=== PATIENT | male | born 1955 | race Caucasian/White ===

== ENCOUNTER 2016-04-29 17:27 | Inpatient (IN) ==
[2016-04-29] MEDS ORDERED: methylPREDNISolone SOD SUC 125 MG/2 ML VIAL IV STA (17:51)
[2016-04-29] MEDS ORDERED: ALUM/MAG/SIMETH/LIDO VISC 1:1 30 ML BOTTLE PO STA (17:51)
[2016-04-29] MEDS ORDERED: ONDANSETRON 4 MG/2 ML VIAL IV STA (17:51)
[2016-04-29] MEDS ORDERED: MORPHINE 2 MG/1 ML SYRINGE IV STA (17:51)
[2016-04-29] MEDS ORDERED: FUROSEMIDE 40 MG/4 ML VIAL IV STA (17:51)
[2016-04-29] MEDS ORDERED: ASPIRIN 325 MG TABLET PO STA (17:51)
[2016-04-29] MEDS ORDERED: NITROGLYCERIN 2% OINT 1 INCH/GM PACK TOP STA (17:51)
[2016-04-29] MEDS ORDERED: ALBUTEROL/IPRATROPIUM 3 ML NEB RESP TX STA (17:51)
--- NOTE | 2016-04-29 17:55 | Emergency Department Note ---
Chang Ruiz Meredith, am scribing for, and in the presence of, Kaleb Garcia MD 17:52. Jose Ruiz Charles R, MD, personally performed the services described in this documentation, ascribed by Nannette Downing in my presence, and it is both accurate and complete [id number] . Arrival - Arrival Chief Complaint: Chest Pain Stated Complaint: CP ED Nursing Triage Note: c/o chest pain with exertion +SOB. no hx of heart problems Mode of Arrival: Wheelchair Limitations: No Limitations Source: Patient, Family, Old Records Reviewed, RN Notes Reviewed Time Seen by Provider: 04/29/16 17:46 - History of Present Illness HPI Narrative: Pt is a 60 y/o white male reporting to the ED with c/o chest pain on exertion and shortness of breath which onset today. He has a history of kidney stones. Onset (ago): hour(s) Allergies/Adverse Reactions: Allergies Allergy/AdvReac Type Severity Reaction Status Date / Time Penicillins Allergy HIVES Verified 04/29/16 17:34 cholesterol med AdvReac Weakness Uncoded 04/29/16 17:34 Home Medications: Home Medications Medication Instructions Recorded Confirmed Type Amitriptyline [Elavil] 100 mg PO BEDTIME 04/29/16 04/29/16 History Gabapentin 800 mg PO TID 04/29/16 04/29/16 History HYDROcodone/ACETAMIN 10-325 [[place] 1 tablet PO TID 04/29/16 04/29/16 History 10-325] Methocarbamol Tab [Robaxin Tab] 500 mg PO TID 04/29/16 04/29/16 History Omeprazole [Prilosec] 20 mg PO BID 04/29/16 04/29/16 History Review of System - Review of System 12 point system: reviewed and no additional remarkable complaints except as stated - Review of System Cardiovascular: Present: as per HPI, chest pain, dyspnea on exertion Medical,Surgical,& Family Hx - Medical History Cardio: No history of: Hypertension Genitourinary: History of: Kidney Stones Musculoskeletal: History of: Back/Neck Problems (nerve damage) - Surgical History Neurologic Surgeries: Patient denies: Neurologic Surgery - Family History Family History: Denies;: Additional Family History - Social History Smoking Status: Current every day smoker Frequency of Alcohol Use: None Type of Drug Use: None Exam Vital Signs: Vital Signs Temperature 97.3 F L 04/29/16 18:28 Pulse Rate 90 04/29/16 18:28 Respiratory Rate 18 04/29/16 18:28 Blood Pressure 130/90 04/29/16 18:28 O2 Sat by Pulse Oximetry 96 04/29/16 18:16 - General General appearance: alert, in no apparent distress, other (smells of tobacco) - Head Head exam: Present: atraumatic, normocephalic - Eye Eye exam: Present: normal appearance, PERRL, EOMI - ENT ENT exam: Present: mucous membranes moist, normal external ear exam - Neck Neck exam: Present: full ROM, trachea midline. Absent: tenderness, meningismus , lymphadenopathy, thyromegaly - Chest Chest inspection: Present: symmetric chest wall rise. Absent: tenderness, rash - Respiratory Respiratory exam: Present: rales, rhonchi - Cardiovascular Cardiovascular exam: Present: regular rate, normal rhythm, murmur (4/6 systolic ejection murmur) - Abdominal Exam Abdominal exam: Present: soft, normal bowel sounds. Absent: distention, tenderness - Extremities Exam Extremities exam: Present: full ROM, normal capillary refill, pedal edema (+1 bilaterally ). Absent: tenderness, calf tenderness - Back Exam Back exam: Present: full ROM. Absent: tenderness - Neurological Exam Neurological exam: Present: alert, oriented X3, CN II-XII intact. Absent: motor sensory deficit - Psychiatric Psychiatric exam: Present: normal affect, normal mood - Skin Skin exam: Present: warm, intact, normal color Course - Consultations Consultation #1: Dr. Ludwig will admit the patient Time: 21:19 Results - Labs CBC & BMP: 04/29/16 18:11 04/29/16 18:11 Lab Results: I have reviewed the patients labs Critical Care Time Critical Care Time: Yes Total Critical Care Time: 60 Disposition Clinical Impression: Chest pain, Unstable angina pectoris, Elevated troponin Case discussed with: patient, patient's family Disposition: Still a Patient Condition: Guarded Time of Disposition: 21:19
--- NOTE | 2016-04-29 17:56 | EKG Report ---
Stationary ECG Study [facility] ER Test Date: 04/29/2016 5:31:39 PM Pat Name: ARETHA ROLAND Department: Room: Gender: M Manager Risk Management: Brissa Multani : 1955 Requested by: Kaleb Swenson Order Number: [id number] Reading MD: RYAN LAKE Intervals [place] Rate: 104 P: 69 WV: 148 QRS: 73 QRSD: 86 T: 71 QT: 321 QTc: 381 Interpretive Statements SINUS TACHYCARDIA ABNORMAL RHYTHM ECG Electronically Signed On 04-30-16 20:24:38 CDT by RYAN LAKE [email or web address]
[2016-04-29] MEDS ORDERED: FUROSEMIDE 100 MG/10 ML VIAL ONE (18:07)
[2016-04-29] MEDS ORDERED: MORPHINE 2 MG/1 ML SYRINGE ONE (18:07)
[2016-04-29] MEDS ORDERED: ONDANSETRON 4 MG/2 ML VIAL ONE (18:07)
[2016-04-29] MEDS ORDERED: NITROGLYCERIN 2% OINT 1 INCH/GM PACK TOP ONE (18:07)
[2016-04-29] MEDS ORDERED: ASPIRIN 325 MG TABLET ONE (18:07)
[2016-04-29] MEDS ORDERED: methylPREDNISolone SOD SUC 125 MG/2 ML VIAL ONE (18:08)
[2016-04-29] MEDS ORDERED: ALUM/MAG/SIMETH/LIDO VISC 1:1 30 ML BOTTLE PO ONE (18:08)
[2016-04-29 18:18] LABS: Basophils # 0.1 10*3/uL (0.0-0.2); Eosinophils # 0.4 10*3/uL (0.0-0.87); Eosinophils % 3.9 % (0.00-10.9); Hematocrit 42.8 VOL% (42.0-52.0); Hemoglobin 14.3 GM/DL (14.0-18.0); Immature Granulocytes % 0.2 %; Immature Granulocytes Absolute 0.02 #; Lymphocytes # 2.9 10*3/uL (1.4-4.0); Lymphocytes % 30.8 % (21.2-54.2); Mean Corpuscular HGB Conc 33.4 GM/DL (32-36); Mean Corpuscular Hemoglobin 31 PG (27-34); Mean Corpuscular Volume 91.6 FL (87-102); Mean Platelet Volume 9.8 FL (9.6-12.0); Monocytes # 0.6 10*3/uL (0.11-0.8); Monocytes % 6.4 % (1.7-12.7); Neutrophils # 5.5 10*3/uL (1.4-7.4); Neutrophils % 57.7 % (38.7-73.9); Platelet Count 241 T/CUMM (130-400); Red Blood Count 4.67 MC/CUMM (3.8-5.5); Red Cell Distribution Width 13.1 % (9.3-17.3); White Blood Count 9.4 T/CUMM (4-12)
[2016-04-29 18:26] LABS: Apearance,Urine CLEAR (Clear); Bilirubin,Urine Negative (Negative); Blood, Urine Negative (Negative); Glucose,Urine (UA) Negative (Negative); Ketones,Urine Negative (Negative); Mucus,Urine Occasional /LPF (Occasional); Nitrite,Urine Negative (Negative); Protein,Urine Negative; Urine Color Straw (Yellow); Urine Specific Gravity 1.004 (1.001-1.035); Urine Urobilinogen < 2.0 EU/DL (0.2-1.0); WBC,Urine <1 /HPF (0-6)
--- NOTE | 2016-04-29 18:28 | XRay Report ---
XR chest 1V portable Indication: Chest pain Comparison: None Technique: Frontal views of the chest Findings: Heart size appears within normal limits. There is mild opacification within the left mid and lower lung suggesting atelectasis/consolidation. There is small left pleural fluid. There is linear atelectasis/scarring within the left mid and lower lung as well. Cervical fusion hardware noted. Old left clavicular deformity. IMPRESSION: As above. PROCEDURE INTERPRETED AT [facility] DEPARTMENT OF RADIOLOGY Final Report Signed by: Dr Jam Phan
[2016-04-29 18:33] LABS: Barbiturates Screen,Urine Negative (Negative); Benzodiazepines Screen,Urine Negative (Negative); Cannabinoid Screen,Urine Negative (Negative); Opiate Screen,Urine Positive (Negative); Phencyclidine Screen,Urine Negative (Negative)
[2016-04-29 18:44] LABS: Magnesium 2.1 MG/DL (1.8-2.4)
[2016-04-29 18:50] LABS: Alanine Aminotransferase 20 U/L (16-61); Albumin 3.8 G/DL (3.4-5.0); Alkaline Phosphatase 100 U/L (45-117); Aspartate Amino Transferase 17 U/L (0-37); Bilirubin,Total < 0.39 MG/DL (0.2-1.0); Blood Urea Nitrogen 12 MG/DL (7-18); Calcium 9.1 MG/DL (8.5-10.1); Glucose 92 MG/DL (74-106); Osmolality,Calculated 287.7 MOS/KG (273-304); Potassium 4.4 MMOL/L (3.5-5.1); Sodium 145 MMOL/L (136-145); Total Protein 6.3 G/DL (6.4-8.3)
[2016-04-29] MEDS ORDERED: ENOXAPARIN 100 MG/ML SYRINGE SUBCUT STA (21:04)
[2016-04-29] MEDS ORDERED: ENOXAPARIN 100 MG/ML SYRINGE SUBCUT ONE (21:59)
[2016-04-29] MEDS ORDERED: SODIUM CHLORIDE 0.9% 1,000 ML IV SCH (23:49)
[2016-04-29] MEDS ORDERED: MORPHINE 2 MG/1 ML SYRINGE IV PRN (23:49)
[2016-04-29] MEDS ORDERED: MAGNESIUM SULF RIDER 4 GM in PREMIX 1 EACH IV PRN (23:49)
[2016-04-29] MEDS ORDERED: ONDANSETRON 4 MG/2 ML VIAL IV PRN (23:49)
[2016-04-29] MEDS ORDERED: MAGNESIUM SULF RIDER 2 GM in PREMIX 1 EACH IV PRN (23:49)
[2016-04-29] MEDS ORDERED: POTASSIUM CHLORIDE 20 MEQ TABLET PO PRN (23:49)
[2016-04-29] MEDS ORDERED: ALBUTEROL/IPRATROPIUM 3 ML NEB RESP TX PRN (23:49)
[2016-04-30] MEDS ORDERED: NITROGLYCERIN 2% OINT 1 INCH/GM PACK TOP SCH
[2016-04-30 00:41] LABS: Basophils % 0.1 % (0.0-0.8); Eosinophils % 0.1 % (0.00-10.9); Hemoglobin 14.5 GM/DL (14.0-18.0); Immature Granulocytes % 0.2 %; Immature Granulocytes Absolute 0.02 #; Lymphocytes # 1.2 10*3/uL (1.4-4.0); Mean Corpuscular Hemoglobin 30 PG (27-34); Mean Corpuscular Volume 91.9 FL (87-102); Mean Platelet Volume 9.8 FL (9.6-12.0); Monocytes % 0.5 % (1.7-12.7); Neutrophils # 7.3 10*3/uL (1.4-7.4); Neutrophils % 85.1 % (38.7-73.9); Platelet Count 251 T/CUMM (130-400); Red Blood Count 4.79 MC/CUMM (3.8-5.5); Red Cell Distribution Width 13.2 % (9.3-17.3); White Blood Count 8.6 T/CUMM (4-12)
[2016-04-30 01:26] LABS: Albumin 3.8 G/DL (3.4-5.0); Bilirubin,Total 0.6 MG/DL (0.2-1.0); Calcium 9.1 MG/DL (8.5-10.1); Magnesium 2.3 MG/DL (1.8-2.4); Osmolality,Calculated 293.7 MOS/KG (273-304); Potassium 4.1 MMOL/L (3.5-5.1); Risk Ratio 4.27; Thyroid Stimulating Hormone 0.888 uIU/ml (0.358-3.74); Total Protein 6.4 G/DL (6.4-8.3); VLDL CHOLESTEROL 22.4 MG/DL
--- NOTE | 2016-04-30 07:00 | Cardiology History & Physical ---
Assessment and Plan - Time spent with patient Time spent with patient: Greater than 30 minutes (Examination interview chart review and documentation) (1) Aortic stenosis Status: Acute Assessment and plan: Patient is unaware of any history of murmur. To me this sounds like it is likely contributing to his current symptomatology. We will get a transthoracic echocardiogram and assess severity. I think it is at least moderate. He does have slightly delayed carotid upstroke and a very quiet but present second heart sound. 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 He has been on no medical therapy I do not think that is unreasonable if his echo looks good. He has not had any rest symptoms. I will look at his echocardiogram before we make a final decision. Current Visit: Yes (2) Elevated blood sugar level Status: Acute Assessment and plan: Patient is unaware of any diabetes. I am sure this was probably a nonfasting blood sugar will check. Current Visit: Yes (3) Elevated troponin Status: Acute Assessment and plan: This troponin elevation is certainly due to ischemia. Is very mild elevation and appears to have plateaued. I do not know if this is from type I ischemia or possibly type II ischemia from demand of worsening aortic stenosis. The patient certainly needs left heart catheterization selective coronary angiography but would like to defer if possible to return home. Will further evaluate and assess. Current Visit: Yes (4) Unstable angina pectoris Status: Acute Assessment and plan: As per above the elevated troponin Current Visit: Yes History of Present Illness Chief complaint: Chest pain with radiation to left arm. History of present illness: Mr. Leonard is a very pleasant 60 year old male who resides in [facility]. He is here visiting his father who recently had aortic valve replacement. He is unaware of any history of coronary artery disease. The patient is largely sedentary secondary to musculoskeletal problems from herniated disc and spinal cord injury from his neck. He walks with the assistance of a cane around his home bedtime he gets out he usually uses automated vehicles for transportation around big box stores etc. He states yesterday he went to the store here locally and there was no cart available and he walked with the use of his cane approximately 100 feet he had chest discomfort and shortness of breath. He states he did not think used to make it back to the front of the store. His insisted that he come to the emergency room. The patient has no known history of documented coronary artery disease. He does have a history of nephrolithiasis and herniated disc in his neck with subsequent significant musculoskeletal problems. He states "it is a miracle I can walk." The patient is not diabetic and does not have any history of hypertension. He has been a lifelong heavy smoker. He has a lifelong history of heavy manual labor. He has been in both the [employer] in [employer]. He denies any chest pain at rest any nausea or diaphoresis but has significant dyspnea and chest discomfort. He has not had syncope. He sleeps at home on 2 or 3 pillows for his neck pain he denies orthopnea but again has propped up for many years. He has not had any significant lower extremity edema. Home Medications Medication Instructions Recorded Confirmed Type Amitriptyline [Elavil] 100 mg PO BEDTIME 04/29/16 04/29/16 History Gabapentin 800 mg PO TID 04/29/16 04/29/16 History HYDROcodone/ACETAMIN 10-325 [[place] 1 tablet PO TID 04/29/16 04/29/16 History 10-325] Methocarbamol Tab [Robaxin Tab] 500 mg PO TID 04/29/16 04/29/16 History Omeprazole [Prilosec] 20 mg PO BID 04/29/16 04/29/16 History Allergies Allergy/AdvReac Type Severity Reaction Status Date / Time Penicillins Allergy HIVES Verified 04/29/16 17:34 cholesterol med AdvReac Weakness Uncoded 04/29/16 17:34 - Constitutional Constitutional: Absent: anorexia (He has a purposeful 15 pound weight loss over the last 6 months by switching to drinking only water from caloric beverages), chills - EENT Eyes: Absent: blurry vision, diplopia Ears: Absent: decreased hearing, ear discharge Nose, mouth and throat: Present: neck pain (This is a problem that has been ongoing for many years). Absent: dysphagia - Cardiovascular Cardiovascular: Present: chest pain with activity, dyspnea, dyspnea on exertion , radiating jaw, neck or arm pain. Absent: chest pain at rest, edema, orthopnea , palpitations, PND - Respiratory Respiratory: Present: cough, dyspnea, dyspnea on exertion, wheezing, snoring - Gastrointestinal Gastrointestinal: Present: heartburn. Absent: abdominal pain, bloating, cramping, diarrhea, dyspepsia - Genitourinary Genitourinary: Absent: dysuria, flank pain - Musculoskeletal Musculoskeletal: Present: arthralgias, back pain, limited range of motion, muscle weakness, myalgias - Neurological Neurological: Present: abnormal gait (Again from his neck injury) - Psychiatric Psychiatric: Absent: anxiety, depression - Endocrine Endocrine: Absent: cold intolerance, heat intolerance - Hematologic/Lymphatic Hematologic/Lymphatic: Absent: easy bleeding, easy bruising Medical,Surgical,& Family Hx - Medical History Cardio: No history of: Hypertension Genitourinary: History of: Kidney Stones Musculoskeletal: History of: Back/Neck Problems (nerve damage) No history of: Amputation - Surgical History Cardiac Surgeries: Patient Denies: Cardiac Catheterization Thoracic Surgeries: Patient denies;: Organ Transplant, Lobectomy Neurologic Surgeries: Patient denies: Neurologic Surgery HEENT Surgeries: Patient denies: Eye Surgery, Tonsilectomy & Adenoidectomy Reproductive Surgeries: Patient denies;: Genitourinary Surgery Orthopedic Surgeries: Surgical HX of;: Orthopedic Surgery (Knee surgeries neck surgery) Patient denies;: Implanted Devices, Spinal Surgery, Total Hip Replacement, Total Knee Replacement - Family History Family History: Denies;: Additional Family History - Social History Smoking Status: Current every day smoker Frequency of Alcohol Use: None Type of Drug Use: None Marital Status: Lives With:: Spouse Functional capacity: uses cane/walker Cardiology Physical Exam - Constitutional Vitals: Vital Signs Temp Pulse Resp BP Pulse Ox 98.6 F 83 18 97/63 94 L 04/30/16 04:00 04/30/16 04:00 04/30/16 05:56 04/30/16 04:00 04/30/16 04:00 Intake and Output 04/29/16 04/29/16 04/30/16 15:59 23:59 07:59 Intake Total 0 / 0 Balance 0 / 0 Intake: Oral 0 / 0 Other: Voiding Method Toilet # Voids 1 Weight 97.477 kg 97.069 kg Patient Weight 04/30/16 23:59 Weight 97.069 kg General appearance: over weight - Head Head exam: Present: normal inspection - Eye Eye exam: Present: EOMI Pupils: Present: CARLA - ENT ENT exam: Present: normal exam - Neck Neck exam: Present: other (Murmur radiating over carotids) - Respiratory Respiratory exam: Present: prolonged expiratory phase, rhonchi, wheezes - Cardiovascular Cardiovascular exam: Present: regular rate and rhythm (He has a 3/6 murmur of aortic stenosis that appears to have a very quiet second heart sounds almost absent. This sounds like it is moderate to severe by exam. His PMI is not well localized) - GI/Abdominal GI/Abdominal exam: Present: normal bowel sounds - Extremities Exam Extremities exam: Present: other (JOHNNY hose are in place he has no edema) - Neurological Exam Neurological exam: Present: alert, oriented X3 - Psychiatric Psychiatric exam: Present: normal affect, normal mood - Skin Skin exam: Present: normal color, warm, intact Result/EKG - Labs CBC & BMP: 04/30/16 00:33 04/30/16 00:33 Labs: Laboratory Results - last 24 hr 04/29/16 04/30/16 04/30/16 22:59 00:33 00:33 WBC 8.6 RBC 4.79 Hgb 14.5 Hct 44.0 MCV 91.9 MCH 30 MCHC 33.0 RDW 13.2 Plt Count 251 MPV 9.8 Neut % (Auto) 85.1 H Lymph % (Auto) 14.0 L [facility] % (Auto) 0.5 L Eos % (Auto) 0.1 Baso % (Auto) 0.1 Neut # (Auto) 7.3 Lymph # (Auto) 1.2 L [facility] # (Auto) 0.0 L Eos # (Auto) 0.0 Baso # (Auto) 0.0 Immature Gran % 0.2 Nucleated RBC % 0.0 Immature Gran # 0.02 Nucleated RBCs # 0.00 Sodium Potassium Chloride Carbon Dioxide Anion Gap BUN Creatinine GFR Calculation BUN/Creatinine Ratio Glucose Calculated Osmolality Calcium Magnesium Total Bilirubin AST ALT Alkaline Phosphatase Troponin I 0.225 H B-Natriuretic Peptide Total Protein Albumin Globulin Albumin/Globulin Ratio Triglycerides Cholesterol LDL Cholesterol VLDL Cholesterol HDL Cholesterol Heart Disease Risk Ratio Free T4 0.99 TSH 3rd Generation 04/30/16 04/30/16 04/30/16 00:33 00:33 00:34 WBC RBC Hgb Hct MCV MCH MCHC RDW Plt Count MPV Neut % (Auto) Lymph % (Auto) [facility] % (Auto) Eos % (Auto) Baso % (Auto) Neut # (Auto) Lymph # (Auto) [facility] # (Auto) Eos # (Auto) Baso # (Auto) Immature Gran % Nucleated RBC % Immature Gran # Nucleated RBCs # Sodium 145 Potassium 4.1 Chloride 107 Carbon Dioxide 29 Anion Gap 13.1 BUN 15 Creatinine 1.40 H GFR Calculation 68 BUN/Creatinine Ratio 10.00 Glucose 186 H Calculated Osmolality 293.7 Calcium 9.1 Magnesium 2.3 Total Bilirubin 0.60 AST 13 ALT 21 Alkaline Phosphatase 102 Troponin I 0.196 H B-Natriuretic Peptide 65 Total Protein 6.4 Albumin 3.8 Globulin 2.6 Albumin/Globulin Ratio 1.4 Triglycerides 112 Cholesterol 205 H LDL Cholesterol 146.0 VLDL Cholesterol 22.4 HDL Cholesterol 48 Heart Disease Risk Ratio 4.27 Free T4 TSH 3rd Generation 0.888 - EKG EKG results: interpreted by me, sinus rhythm (No acute changes)
--- NOTE | 2016-04-30 07:57 | XRay Report ---
Portable chest Date: 04/30/2016 Clinical history: Shortness of breath Comparison: 04/29/2016 Technique: Portable AP sitting chest Findings: The heart is normal in size. Progressive parenchymal findings at the lung bases with small left pleural effusion. Degenerative changes with prior anterior cervical fusion. Old healed left clavicular fracture. Impression: Progressive atelectasis/infiltration at the lung bases with small left pleural effusion. PROCEDURE INTERPRETED AT [facility] DEPARTMENT OF RADIOLOGY Final Report Signed by: Dr. Amy Mejía
[2016-04-30] MEDS ORDERED: METHOCARBAMOL 500 MG TABLET PO SCH (09:00)
[2016-04-30] MEDS ORDERED: OMEPRAZOLE 20 MG CAPSULE PO SCH (09:00)
[2016-04-30] MEDS ORDERED: NICOTINE 21 MG/24 HR PATCH TRANSDERM SCH (09:00)
[2016-04-30] MEDS ORDERED: GABAPENTIN 400 MG CAPSULE PO SCH (09:00)
[2016-04-30] MEDS ORDERED: ASPIRIN EC 325 MG TABLET PO SCH (09:00)
[2016-04-30] MEDS ORDERED: PANTOPRAZOLE 40 MG TABLET PO SCH (09:00)
[2016-04-30] MEDS ORDERED: ENOXAPARIN 100 MG/ML SYRINGE SUBCUT SCH (10:00)
--- NOTE | 2016-04-30 10:43 | ECHO Report ---
Salbador Leonard Exam Date: 04/30/2016 08:04 Referring Physician: Technologist: Haroon PATTERSON Age: 60 Ht (in): Wt (lb): Gender: M Exam Location: [facility] Echo Indications: elevated blood sugar, Aortic Stenosis, chest pain, elevated troponin BP: / HR: Rhythm: Sinus Technical Quality: average IMPRESSIONS Left ventricular ejection fraction is estimated at 65 %. There is no regional wall motion abnormality. Diastolic parameters are most consistent with grade 1 diastolic dysfunction impaired relaxation. Moderate aortic insufficiency with KO estimated at 1.1 cm2 and moderate aortic insufficiency with pressure halftime of 408-446 msec. Moderate concentric LVH Mild tricuspid insufficiency with RVSP of 23 mmHg plus the right atrial pressure MEASUREMENTS (Male / Female) Normal Values 2D ECHO LV Diastolic Diameter PLAX 3.8 cm 4.2 - 5.9 / 3.9 - 5.3 cm LV Systolic Diameter PLAX 2.8 cm LV Fractional Shortening PLAX 27.7 % IVS Diastolic Thickness 2.0 cm 0.6 - 1.0 / 0.6 - 0.9 cm LVPW Diastolic Thickness 1.3 cm 0.6 - 1.0 / 0.6 - 0.9 cm Aortic Root Diameter 2.3 cm LA Systolic Diameter LX 3.1 cm 3.0 - 4.0 / 2.7 - 3.8 cm DOPPLER TR Peak Velocity 239.0 cm/s TR Peak Gradient 22.8 mmHg FINDINGS Left Ventricle Normal left ventricular cavity size. Mild concentric left ventricular hypertrophy with diastolic dysfunction.left ventricular ejection fraction is estimated at 65 %. There is no regional wall motion abnormality. Diastolic parameters are most consistent with grade 1 diastolic dysfunction impaired relaxation. Right Ventricle Normal right ventricular size. Right Atrium Normal right atrial size. Left Atrium Normal left atrial size. Mitral Valve Mild mitral valve sclerosis. Mild mitral valve regurgitation. Aortic Valve [id number] aortic valve stenosis. Aortic valve area is 1.1 cm. Aortic valve mean gradient is 27 mmHg. This is most consistent with moderat aortic stenosis. Moderate aortic valve regurgitation. The aortic valve peak instantenous velocity is 3.56 m/sec with a VTI of 83.2. The LVOT vmax is 1.2 m/sec with a VTI of 29.8. The VTI ratio is 0.35 and utilizing the continuity equation the KO is estimated at 1.1 cm2. There is moderate aortic insufficiency with a pressure halftime of 408-446 msec. Tricuspid Valve Morphologically normal tricuspid valve. Mild tricuspid valve regurgitation. Tricuspid regurgitation velocities suggest a RVSP of 23 mmHg + RAP. Pulmonic Valve Morphologically normal pulmonic valve. Pericardium No pericardial effusion. Aorta Normal size aortic root and proximal ascending aorta. Elizabeth Contreras (Electronically Signed) Final Date: 30 April 2016 10:42
[2016-04-30 11:57] VITALS: BP 123/74
[2016-04-30] MEDS ORDERED: CLOPIDOGREL 300 MG TABLET PO ONE (12:40)
--- NOTE | 2016-04-30 12:45 | Discharge Summary ---
Hospital Course - Hospital Course Hospital Course: Patient was admitted with exertional chest pain on 04/29/2016 he had serial cardiac biomarkers with mild troponin elevation that was relatively flat level. He had no exertional chest pain during any of his time in the hospital prior to being admitted to the hospital. Patient had an exam suggestive of moderate to severe aortic stenosis and this was confirmed by transthoracic echocardiogram with aortic valve area estimated to be 1.1 cm with moderate aortic insufficiency pressure half-time in the mid 400s. He had no regional wall motion abnormality and moderate concentric left ventricular hypertrophy and ejection fraction of greater than 60%. The patient also had other labs including lipids etc. When long discussion with the patient recommended left heart catheterization selective coronary angiography and possible percutaneous coronary mention based on his presentation and his risk profile. He really wished to be back to the [facility] in [facility]. I initiated therapies including clopidogrel realizing that if he needs bypass this will postpone bypass intervention however given his troponin positive nature in his desire to delay evaluation I thought it was safest in the interim to maximize his medical therapy with beta-hermelinda or nitrates. Nitrates high-dose statins aspirin and clopidogrel. Also asked him to refrain from smoking we will replete his nicotine addiction with nicotine patch topically. I placed a call to his primary care team is headed by Dr. Eckert at . This is at the [facility]. I tried to call the Hospital and got no answer on the phone listed in the area phonebook per the internt. At the time of this dictation I am holding and listening to commercials and elevator music [facility]. I held on the phone for in excess of 17 minutes and I got no person to talk to me. The recorded finally quit. - Time spent with patient Time with patient DS: Greater than 30 minutes (Discussion with the patient's PCP at the [facility] in [place], medication reconciliation prescribing new medications documentation and orders) Time spent discussing smoking cessation with patient: more than 10 minutes Diagnosis - Discharge Diagnosis (1) Aortic stenosis Status: Acute (2) Elevated blood sugar level Status: Acute (3) Elevated troponin Status: Acute (4) Unstable angina pectoris Status: Acute (5) Tobacco use Status: Acute (6) Dyslipidemia Status: Acute Discharge Plan - Discharge Data Disposition: Disch To Home/Self Care Condition at Discharge: Stable Discharge Diet: heart healthy Activity: other (minimal activity until evaluated by [facility] of his choice in [facility].) Hygiene: may shower Weight Bearing at Discharge: full weight bearing, weight bear as tolerated Driving: not for - Discharge Medications New Carvedilol [Coreg] 3.125 mg PO BID #60 tablet Clopidogrel [Plavix] 75 mg PO DAILY #30 tablet Isosorbide Mononitrate [Imdur] 15 mg PO DAILY #30 tablet Nicotine 21 mg/24 Hr Patch [Nicoderm CQ 21 mg/24 hr Patch] 1 patch TRANSDERM DAILY patch Nitroglycerin [Nitroglycerin SL Tab] 0.4 mg SL Q5M PRN #25 tablet PRN Reason: Chest Pain Aspirin EC Tab 81 mg PO DAILY #30 tablet Continue Amitriptyline [Elavil] 100 mg PO BEDTIME Omeprazole [Prilosec] 20 mg PO BID Methocarbamol Tab [Robaxin Tab] 500 mg PO TID HYDROcodone/ACETAMIN 10-325 [[place] 10-325] 1 tablet PO TID Gabapentin 800 mg PO TID - Follow Up or Referral - Forms/Instructions Additional Discharge Instructions: GO TO SEE PCP [facility] UPON RETURN TO [facility] FOR ANY CHEST PAIN Exam - Constitutional Vitals: Period Temp Pulse Resp BP Sys/Dempsey Pulse Ox Last 24 Hr 97.3 F-98.6 F 79-108 16-83 97-131/50-74 90-98 General appearance: normal weight - Head Head exam: Present: normal inspection - Eye Eye exam: Present: other (dysconjugate gaze with lateral deviation of the left eye) - ENT ENT exam: Present: normal exam - Neck Neck exam: Present: normal inspection - Respiratory Respiratory exam: Present: rhonchi, wheezes - Cardiovascular Cardiovascular exam: Present: regular rate and rhythm (3/6 murmur of with single second heart sound. I can't hear AI murmur) - GI/Abdominal GI/Abdominal exam: Present: normal bowel sounds - Extremities Exam Extremities exam: Absent: edema - Neurological Exam Neurological exam: Present: alert, oriented X3 - Psychiatric Psychiatric exam: Present: normal affect, normal mood - Skin Skin exam: Present: normal color, warm, dry Discharge Results Procedures and tests throughout hospitalization: Echocardiogram. Labs on day of discharge: Labs from last 24 hours 04/30/16 04/30/16 04/30/16 00:34 00:33 00:33 WBC RBC Hgb Hct MCV MCH MCHC RDW Plt Count MPV Neut % (Auto) Lymph % (Auto) Titus % (Auto) Eos % (Auto) Baso % (Auto) Neut # (Auto) Lymph # (Auto) Titus # (Auto) Eos # (Auto) Baso # (Auto) Immature Gran % Nucleated RBC % Immature Gran # Nucleated RBCs # Sodium 145 Potassium 4.1 Chloride 107 Carbon Dioxide 29 Anion Gap 13.1 BUN 15 Creatinine 1.40 H GFR Calculation 68 BUN/Creatinine Ratio 10.00 Glucose 186 H Calculated Osmolality 293.7 Calcium 9.1 Magnesium 2.3 Total Bilirubin 0.60 AST 13 ALT 21 Alkaline Phosphatase 102 Troponin I 0.196 H B-Natriuretic Peptide 65 Total Protein 6.4 Albumin 3.8 Globulin 2.6 Albumin/Globulin Ratio 1.4 Triglycerides 112 Cholesterol 205 H LDL Cholesterol 146.0 VLDL Cholesterol 22.4 HDL Cholesterol 48 Heart Disease Risk Ratio 4.27 Free T4 TSH 3rd Generation 0.888 04/30/16 04/30/16 04/29/16 00:33 00:33 22:59 WBC 8.6 RBC 4.79 Hgb 14.5 Hct 44.0 MCV 91.9 MCH 30 MCHC 33.0 RDW 13.2 Plt Count 251 MPV 9.8 Neut % (Auto) 85.1 H Lymph % (Auto) 14.0 L Titus % (Auto) 0.5 L Eos % (Auto) 0.1 Baso % (Auto) 0.1 Neut # (Auto) 7.3 Lymph # (Auto) 1.2 L Titus # (Auto) 0.0 L Eos # (Auto) 0.0 Baso # (Auto) 0.0 Immature Gran % 0.2 Nucleated RBC % 0.0 Immature Gran # 0.02 Nucleated RBCs # 0.00 Sodium Potassium Chloride Carbon Dioxide Anion Gap BUN Creatinine GFR Calculation BUN/Creatinine Ratio Glucose Calculated Osmolality Calcium Magnesium Total Bilirubin AST ALT Alkaline Phosphatase Troponin I 0.225 H B-Natriuretic Peptide Total Protein Albumin Globulin Albumin/Globulin Ratio Triglycerides Cholesterol LDL Cholesterol VLDL Cholesterol HDL Cholesterol Heart Disease Risk Ratio Free T4 0.99 TSH 3rd Generation - Imaging and Cardiology Cardiology Procedure: image reviewed by me, report reviewed by me DS: Provider Date of admission: 04/29/16 21:59 Primary care physician: . No PCP Attending physician on admission: Elizabeth Contreras DO Discharging clinician: Elizabeth Contreras DO Expected date of discharge: 04/30/16
[2016-04-30] MEDS ORDERED: AMITRIPTYLINE 100 MG TABLET PO SCH (21:00)
[2016-05-01] MEDS ORDERED: CLOPIDOGREL 75 MG TABLET PO SCH (09:00)
== END 2016-04-30 15:15 | disposition home or self-care (01) | DRG 311 ==
LOC: N.ED 17:27 → N.EDINP 21:59 → N.TELEN 22:32
PROVIDERS: ADMIT Internal Medicine Cardiovascular Disease; ATTEND Internal Medicine Cardiovascular Disease